=== PATIENT | male | born 2000 | race Caucasian/White ===

== ENCOUNTER 2023-01-10 15:57 | Emergency (ER) | payer OTHER ==
[~2023-01-10] VITALS: Ht 177.8 cm; Wt 99.8 kg
[~2023-01-10 15:57] MED LIST: AMOX50SU PO; CODACE15 PO; CODACEE120 PO; NAPR250 PO; PRED15SY PO; PROM12.5S PR; RXCODACESY PO
[2023-01-10 16:39] LABS: BASOPHILS ABSOLUTE AUTO 0.06 K/mm3 (0.00-0.23); BASOPHILS PERCENT AUTO 1 % (0-2); EOSINOPHILS ABSOLUTE AUTO 0.03 K/mm3 (0.00-0.68); EOSINOPHILS PERCENT AUTO 0 % (0-6); Hematocrit 46.2 % (37.0-53.0); Hemoglobin 16.4 g/dL (13.5-17.5); IMMATURE GRAN ABSOLUTE AUTO 0.05 K/mm3 (0.00-0.10); IMMATURE GRAN PERCENT AUTO 1 % (0-1); LYMPHOCYTES ABSOLUTE AUTO 2.49 K/mm3 (0.84-5.20); LYMPHOCYTES PERCENT AUTO 27 % (21-46); MONOCYTES ABSOLUTE AUTO 0.69 K/mm3 (0.16-1.47); MONOCYTES PERCENT AUTO 7 % (4-13); Mean Corpuscular HGB 30.8 pg (26.0-34.0); Mean Corpuscular HGB Conc 35.5 g/dL (31.5-36.5); Mean Corpuscular Volume 87 fL (80-100); Mean Platelet Volume 9.4 fL (9.1-12.4); NEUTROPHILS ABSOLUTE AUTO 6.09 K/mm3 (1.96-9.15); NEUTROPHILS PERCENT AUTO 65 % (41-73); Platelet Count 351 K/mm3 (150-400); RDW Coefficient Variation 11.9 % (11.7-14.2); RDW Standard Deviation 37.8 fL (35.1-46.3); Red Blood Cell Count 5.32 M/mm3 (4.30-5.90); White Blood Cell Count 9.41 K/mm3 (4.00-11.30)
[2023-01-10 16:58] LABS: Albumin, Blood 4.6 g/dL (3.4-5.0); Albumin/Globulin Ratio 1.3 (0.8-1.8); Bilirubin, Total 0.8 mg/dL (0.1-1.0); Bun/Creatinine Ratio 9.6 (12.0-20.0); Calcium, Blood 9.6 mg/dL (8.5-10.1); Creatinine, Blood 1.15 mg/dL (0.60-1.20); Globulin, Blood 3.5 g/dL (2.2-4.0); Potassium, Blood 3.9 mmol/L (3.5-5.5); Total Protein, Blood 8.1 g/dL (6.4-8.2)
[2023-01-10 17:21] LABS: Source, Urine Clean Catch
[2023-01-10 17:28] LABS: Appearance, Urine Turbid (Clear); Blood, Urine 5+ (Neg); Color, Urine Brown (P-Yellow); Glucose Qualitative, Urine Neg (Neg); Ketones, Urine 1+ (Neg); Leukocyte Esterase, Urine 2+ (Neg); Nitrite, Urine Pos (Neg); Protein, Urine 3+ (Neg); Specific Gravity, Urine 1.025 (1.003-1.022); Urobilinogen, Urine 2+ (Normal)
[2023-01-10 17:50] LABS: Bilirubin, Urine 1+ (Neg)
[2023-01-10 17:58] LABS: Red Blood Cells, Urine TNTC /hpf (0-2)
[2023-01-10 17:59] LABS: Bacteria Mod /hpf; Squamous Epithelial Cells Few /hpf (Few)
[2023-01-10 18:00] LABS: Calcium Oxalate Crystals Mod /hpf
[2023-01-10] MEDS ORDERED: DOXY100 PO (19:30)
[2023-01-10] MEDS ORDERED: SULTRIDS PO (19:30)
[2023-01-10] MEDS ORDERED: ONDA4ODT MM (19:30)
[2023-01-10 20:01] VITALS: BP 130/73
== END 2023-01-10 20:12 | disposition home or self-care (01) ==
LOC: ER 15:57
PROVIDERS: Student in an Organized Health Care Education/Training Program
DX: N10 Acute pyelonephritis (principal); Z88.0 Allergy status to penicillin
CPT/HCPCS: 74177; 80053; 81001; 83690; 85025; 87086; 96372-59; 96374-59; 96375; 99284-25; A9270; J0696; J1885; J2405; Q9967